=== PATIENT | female | born 1960 | race Caucasian/White ===

== ENCOUNTER 2017-07-21 15:25 | Outpatient (CLI) | payer OTHER ==
--- NOTE | 2017-07-21 16:22 | RAD ---
LEFT KNEE FOUR VIEWS 07/21/17 HISTORY: Left knee pain. FINDINGS/IMPRESSION: There are mild degenerative changes. No fracture, dislocation or bony destructions are identified.
--- NOTE | 2017-07-22 09:39 | RAD ---
RIGHT KNEE 4 VIEWS: HISTORY: Right knee pain. FINDINGS/IMPRESSION: There are mild-moderate degenerative changes. No fracture, dislocation, or bony destruction is seen. A joint effusion is present.
== END 2017-07-21 15:26 | disposition home or self-care (01) ==
LOC: RAD-FRANK 15:25
PROVIDERS: ATTEND Internal Medicine
DX: M25.561 Pain in right knee (principal); M17.0 Bilateral primary osteoarthritis of knee; M25.461 Effusion, right knee

== ENCOUNTER 2024-04-12 09:20 | Outpatient (CLI) | payer OTHER | END 2024-04-12 09:21 | disposition home or self-care (01) | LOC: BICMAMMO 09:20 | PROVIDERS: ATTEND Nurse Practitioner Family | DX: R92.8 Other abnormal and inconclusive findings on diagnostic imaging of breast (principal) | CPT/HCPCS: 77066; G0279 ==